=== PATIENT | female | born 1985 | race American Indian/Alaskan Native ===

== ENCOUNTER 2021-07-27 15:55 | Emergency (ER) | payer SELFPAY ==
[2021-07-27] MEDS ORDERED: MORPHINE 2 MG/1 ML INJ IV ONE (17:07)
[2021-07-27] MEDS ORDERED: ONDANSETRON 4 MG/2 ML INJ IV ONE (17:08)
--- NOTE | 2021-07-27 17:10 | Emergency Department Report ---
HPI - General Chief Complaint: Sore Throat Time Seen by Provider: 07/27/21 17:02 - HPI HPI: 36-year-old female presents to the emergency department with complaint of having a fishbone stuck in her throat since earlier in the day. She tried eating some bread, banana, drinking warm water, and drinking apple cider vinegar without any relief. Patient says that she feels like she can touch the bone in the back of her throat with her finger. She also has some referred pain into the left ear. She says that it is now causing her some difficulty with swallowing and with talking. She denies any other past medical history. ED Review of Systems ROS: Stated complaint: FISHBONE STUCK IN THROAT Other details as noted in HPI Comment: All other systems reviewed and negative Constitutional: denies: chills, fever Eyes: denies: eye pain, vision change ENT: ear pain, throat pain Respiratory: denies: cough, shortness of breath Cardiovascular: denies: chest pain, palpitations Gastrointestinal: denies: abdominal pain, vomiting Genitourinary: denies: dysuria, discharge Musculoskeletal: denies: back pain, arthralgia Skin: denies: rash, lesions Neurological: denies: headache, weakness Physical Exam - Physical Exam Vital Signs: Vital Signs 07/27/21 16:53 Temperature 97.9 F Pulse Rate 90 Respiratory 20 Rate Blood Pressure 168/88 [Right] O2 Sat by Pulse 100 Oximetry Physical Exam: GENERAL: The patient is well-developed well-nourished. HENT: Normocephalic. Atraumatic. Patient has moist mucous membranes. The visible posterior oropharynx is clear. No drooling or trismus. EYES: Extraocular motions are intact. Pupils equal reactive to light bilaterally. NECK: Supple. Trachea is midline. CHEST/LUNGS: Clear to auscultation. There is no respiratory distress noted. HEART/CARDIOVASCULAR: Regular. There is no tachycardia. There is no murmur. ABDOMEN: Abdomen is soft, nontender. Patient has normal bowel sounds. Obese habitus. SKIN: Skin is warm and dry. NEURO: The patient is awake, alert, and oriented. The patient is cooperative. Normal speech. MUSCULOSKELETAL: There is no tenderness or deformity. There is no limitation range of motion. ED Course Vital Signs 07/27/21 16:53 Temperature 97.9 F Pulse Rate 90 Respiratory 20 Rate Blood Pressure 168/88 [Right] O2 Sat by Pulse 100 Oximetry - Reevaluation(s) Reevaluation #1: 07/27/21 22:52 On the neck x-ray it appeared that the radiopaque foreign body, suspected fishbone, was laying just on top of the epiglottis and then curvilinear superiorly. If it was truly in this position it should be easily visible with any type of direct laryngoscopy. Hurricaine spray was placed into the posterior pharynx. The patient was laid supine and I was able to view the oropharynx with the glide scope. There was a very small amount of a white foreign body, suspected to be the tip of the bone, that was left lateral to the epiglottis going into the soft tissue of the neck. With multiple different forceps available, I was unable to grab a hold of the end of the foreign body. After this attempted procedure we did a CT scan of the neck without contrast and it shows the foreign body to be about 4.5 cm and within the soft tissue of the neck from the left tonsillar region to the left parapharyngeal space. - Consultations Consultation #1: 07/27/21 22:[address] findings showing the fishbone to be lodged within the left soft tissue of the neck into the parapharyngeal space, the patient will need transfer for otolaryngology which we do not have at this facility. A phone call has been made for possible transfer to [facility] and I am awaiting a call back. In the meantime we have attempted transfer to [facility] and have been told that they are not accepting any transfers. We called [facility] but they do not have otolaryngology extractions technologist at night. Now we are attempting a transfer to [facility]. 07/27/21 23:09 The patient was accepted for transfer to the [facility] ED by ENT physician, Dr. Enamorado. ED Medical Decision Making - Radiology Data Radiology results: report reviewed Addendum: After review with the emergency room physician, the low density slightly curvilinear structure superimposed on the airway extending to the tip of the epiglottis anterior to C1 and C2 is likely to be the fishbone in question. The linear density in the arytenoid area probably is just a arytenoid cartilage calcification. Signer Name: South Paul MD Signed: 07/27/2021 4:53 PM Workstation Name: [email or web address] SOFT TISSUES OF THE NECK 2 VIEWS 1718 INDICATION: fishbone caught in throat COMPARISON: None available. FINDINGS: No soft tissue swelling is seen. No soft tissue gas is seen. Epiglottis appears within normal limits. Posterior to the airway at the C4 level a linear ossific density is seen at approximately 4 mm in length just above the sphincter more amorphous calcific density. Though this is in the general area of the arytenoid cartilage, this linear configuration is of concern for possible small bone fragment. CT neck wo con INDICATION / CLINICAL INFORMATION: 36 years Female; pharyngeal foreign body. TECHNIQUE: Contiguous thin cut axial images obtained through the neck. Sagittal and coronal reconstructions performed by the technologist. All CT scans at this location are performed using CT dose reduction for ALARA by means of automated exposure control. COMPARISON: X-ray-soft tissue neck - same day FINDINGS: Curvilinear radiopaque foreign body is seen projecting from the left tonsillar region superiorly and laterally into the soft tissues of the left parapharyngeal space. This finding is mildly curvilinear and measures approximately 4.5 cm in dimension. The inferior tip of this finding lies approximately 7 mm deep to the mucosal surface in the oropharynx-inferior tonsillar region. The superior portion of the foreign body lies adjacent to the styloid process and is within 5 mm of the skull base. There is a mild component of edema in the left tonsillar region, as well as left parapharyngeal space, presumably reactive. Note, the calcification seen on plain film in the region of the arytenoid cartilage is actually cartilage associated calcification and does not represent a foreign body. MUCOSAL SPACE: Otherwise, the nasopharynx, oropharynx and vallecula, oral cavity and floor of mouth, hypopharynx, and larynx are grossly normal. LYMPH NODES: No significant adenopathy appreciated. SALIVARY GLANDS: Parotid, submandibular, and visualized sublingual glands are within normal limits. There is no evidence of sialolith. THYROID GLAND: Unremarkable. PARANASAL SINUSES: Mild mucosal thickening seen in the left maxillary antrum. SPINE: No significant abnormality of the cervical spine appreciated. VASCULAR STRUCTURES: Vascular structures are grossly normal in appearance. ADDITIONAL FINDINGS: Surrounding soft tissues are otherwise grossly normal. IMPRESSION: 1. Foreign body in the soft tissues of the left upper neck, as described above.. - Medical Decision Making This patient presented to the emergency department with a complaint of swallowing a fishbone and having it stuck in her throat. Initially the patient had a x-ray of the soft tissue of the neck that showed a radiopaque curvilinear density that appeared just about the level of the epiglottis. With this appearance I felt that the foreign body, the fishbone, should be visible with direct laryngoscopy or glide scope. I used Hurricaine spray to numb the back of the throat and then used the glide scope to visualize the oropharynx. The fishbone was not obvious around the epiglottis but there was some type of white appearing foreign body to the left lateral portion of the oropharynx, towards the tonsillar fossa, with only a few millimeters of bone sticking out. I attempted to grab this area of bone with the alligator forceps and the longer straight forceps that we had available without any success. The patient was then sent for a CT scan of the neck without contrast that came back showing the bone is within the soft tissue of the neck going from the left tonsillar region to the left parapharyngeal space. As we are unable to remove the foreign body I do not have otolaryngology available, the patient will be transferred to [facility] and was accepted by their ENT extractions technologist. The patient was given another dose of IV analgesia and covered with some IV antibiotics. Her vital signs have been reassuring throughout her ED course. She has maintained her airway without difficulty. All of the imaging results and the plan for transfer has been discussed with the patient and she understands and agrees. Critical Care Time: No Critical care attestation.: If time is entered above; I have spent that time in minutes in the direct care of this critically ill patient, excluding procedure time. ED Disposition Clinical Impression: Fishbone in pharynx, Foreign body of neck Hypertension Qualifiers: Hypertension type: primary hypertension Qualified Code(s): I10 - Essential (primary) hypertension Disposition: [address] [place] [address] HOSPITAL Is pt being admited?: No Condition: Stable Instructions: Hypertension (ED) Time of Disposition: 00:15
--- NOTE | 2021-07-27 17:42 | XRay Report ---
SOFT TISSUES OF THE NECK 2 VIEWS 1718 INDICATION: fishbone caught in throat COMPARISON: None available. FINDINGS: No soft tissue swelling is seen. No soft tissue gas is seen. Epiglottis appears within norm al limits. Posterior to the airway at the C4 level a linear ossific density is seen at approximately 4 mm in length just above the sphincter more amorphous calcific density. Though this is in the genera l area of the arytenoid cartilage, this linear configuration is of concern for possible small bone fr agment. Noncontrast CT of the neck may be useful. Reviewed with a neuroradiologist Signer Name: South Paul MD Signed: 07/27/2021 5:37 PM Workstation Name: [id number]
[2021-07-27] MEDS ORDERED: BENZOCAINE 20% TOP SPRAY 0.5 ML UNIT DOSE MM NR (19:00)
[2021-07-27 20:00] VITALS: BP 171/92
--- NOTE | 2021-07-27 21:39 | Cat Scan Report ---
. CT neck wo con INDICATION / CLINICAL INFORMATION: 36 years Female; pharyngeal foreign body. TECHNIQUE: Contiguous thin cut axial images obtained through the neck. Sagittal and coronal reconstructions perf ormed by the technologist. All CT scans at this location are performed using CT dose reduction for [place] SUMAN by means of automated exposure control. COMPARISON: X-ray-soft tissue neck - same day FINDINGS: Curvilinear radiopaque foreign body is seen projecting from the left tonsillar region super iorly and laterally into the soft tissues of the left parapharyngeal space. This finding is mildly c urvilinear and measures approximately 4.5 cm in dimension. The inferior tip of this finding lies appr oximately 7 mm deep to the mucosal surface in the oropharynx-inferior tonsillar region. The superior portion of the foreign body lies adjacent to the styloid process and is within 5 mm of the skull base . There is a mild component of edema in the left tonsillar region, as well as left parapharyngeal space , presumably reactive. Note, the calcification seen on plain film in the region of the arytenoid cartilage is actually carti manju associated calcification and does not represent a foreign body. MUCOSAL SPACE: Otherwise, the nasopharynx, oropharynx and vallecula, oral cavity and floor of mouth, hypopharynx, and larynx are grossly normal. LYMPH NODES: No significant adenopathy appreciated. SALIVARY GLANDS: Parotid, submandibular, and visualized sublingual glands are within normal limits. T here is no evidence of sialolith. THYROID GLAND: Unremarkable. PARANASAL SINUSES: Mild mucosal thickening seen in the left maxillary antrum. SPINE: No significant abnormality of the cervical spine appreciated. VASCULAR STRUCTURES: Vascular structures are grossly normal in appearance. ADDITIONAL FINDINGS: Surrounding soft tissues are otherwise grossly normal. IMPRESSION: 1. Foreign body in the soft tissues of the left upper neck, as described above. Signer Name: Isreal Herrera MD, III Signed: 07/27/2021 9:35 PM Workstation Name: [email or web address]
[2021-07-27] MEDS ORDERED: MORPHINE 4 MG/1 ML INJ IV ONE (22:35)
== END 2021-07-28 00:45 | disposition short-term general hospital (02) ==
LOC: ED 15:55
DX: T17.228A Food in pharynx causing other injury, initial encounter (principal); I10 Essential (primary) hypertension; Z88.8 Allergy status to other drugs, medicaments and biological substances; Z79.899 Other long term (current) drug therapy; X58.XXXA Exposure to other specified factors, initial encounter; Y93.89 Activity, other specified; Y92.488 Other paved roadways as the place of occurrence of the external cause; Y99.8 Other external cause status
CPT/HCPCS: 70360; 70490; 96374; 96375; 99285; J2270; J2405